=== PATIENT | female | born 1970 | race Caucasian/White ===

== ENCOUNTER 2020-08-09 13:59 | Emergency (ER) | payer BC ==
[~2020-08-09] VITALS: Ht 165.1 cm; Wt 56.7 kg
[2020-08-09] MEDS ORDERED: LEVO88TA5 PO (14:04)
--- NOTE | 2020-08-09 14:17 | NUR ---
Pending MENDEL. tech is aware and is on way. Pt is NAD VSS RA. srx2 up with bed at the lowest position. monitored accordingly
[2020-08-09] MEDS ORDERED: ACETAMINOPHEN 325 MG TABLET PO ONE (14:30)
[2020-08-09] MEDS ORDERED: ACETAMINOPHEN 325 MG TABLET ONE (15:07)
[2020-08-09] MEDS ORDERED: ACET-2154 PO (15:24)
--- NOTE | 2020-08-09 15:28 | NUR ---
Patient discharged to home in stable condition. Written and verbal after care instructions given. Patient verbalizes understanding of instructions. Stressed follow up or return to ER for worsening s/s.
== END 2020-08-09 15:29 | disposition home or self-care (01) ==
LOC: ER 14:03
DX: I80.3 Phlebitis and thrombophlebitis of lower extremities, unspecified (principal); E03.9 Hypothyroidism, unspecified; Z79.890 Hormone replacement therapy; I83.93 Asymptomatic varicose veins of bilateral lower extremities
CPT/HCPCS: A4663